=== PATIENT | male | born 1980 | race Caucasian/White ===

== ENCOUNTER 2021-09-01 23:56 | Emergency (ER) | payer MEDICAID ==
[~2021-09-01] VITALS: Ht 182.9 cm; Wt 79.4 kg
[2021-09-02] MEDS ORDERED: TETANUS-DIPTH-ACEL PERTUSSIS 0.5ML SYR Tdap IM ONE (10:30)
[2021-09-02] MEDS ORDERED: cefTRIAXone SOD 1,000 MG VL IM ONE (10:30)
[2021-09-02 10:44] VITALS: BP 125/82
[2021-09-02] MEDS ORDERED: AMOX-277 PO (11:02)
== END 2021-09-02 11:12 | disposition home or self-care (01) ==
LOC: ER 23:56
DX: S61.212A Laceration without foreign body of right middle finger without damage to nail, initial encounter (principal); W50.3XXA Accidental bite by another person, initial encounter; Y93.89 Activity, other specified; Y92.89 Other specified places as the place of occurrence of the external cause; Y99.8 Other external cause status
CPT/HCPCS: 29130; 73130; 90471; 90715; 96372; 99284; J0696

== ENCOUNTER 2022-12-22 13:00 | Emergency (ER) | payer MEDICAID ==
[~2022-12-22] VITALS: Ht 170.2 cm; Wt 77.0 kg
[~2022-12-22 13:00] MED LIST: AMOX875T4 PO
[2022-12-22] MEDS ORDERED: diphenhdrAMINE HCL 25 MG CAP PO ONE (13:45)
[2022-12-22] MEDS ORDERED: DexAMETHasone SOD PHOS 10MG/1ML VIAL INJ IM ONE (13:45)
[2022-12-22] MEDS ORDERED: CLINDAMYCIN HCL 150 MG CAP PO ONE (13:45)
[2022-12-22 13:48] VITALS: BP 125/74; PULSE 82; RESP 20; TEMP 97.7; O2SAT 95
[2022-12-22] MEDS ORDERED: DIPH25CA66 PO (13:48)
[2022-12-22] MEDS ORDERED: CLIN300C70 PO (13:48)
[2022-12-22] MEDS ORDERED: MUPI2OIN2 EX (13:48)
== END 2022-12-22 13:44 | disposition home or self-care (01) ==
LOC: ER 13:00
DX: S50.362A Insect bite (nonvenomous) of left elbow, initial encounter (principal); L08.9 Local infection of the skin and subcutaneous tissue, unspecified; L03.114 Cellulitis of left upper limb; F17.210 Nicotine dependence, cigarettes, uncomplicated; Z79.2 Long term (current) use of antibiotics; W57.XXXA Bitten or stung by nonvenomous insect and other nonvenomous arthropods, initial encounter; Y93.89 Activity, other specified; Y92.89 Other specified places as the place of occurrence of the external cause; Y99.8 Other external cause status
CPT/HCPCS: 96372; 99283; J1100

== ENCOUNTER 2023-01-17 11:52 | Emergency (ER) | payer MEDICAID ==
[~2023-01-17] VITALS: Ht 182.9 cm; Wt 81.8 kg
[~2023-01-17 11:52] MED LIST changes: +CLIN300C70 PO; +DIPH25CA66 PO; +MUPI2OIN2 EX
[2023-01-17 13:15] VITALS: BP 116/82; PULSE 83; RESP 16; TEMP 99; O2SAT 96
[2023-01-17] MEDS ORDERED: TRIA0.02 TOP (13:44)
[2023-01-17] MEDS ORDERED: CEPH500C PO (13:44)
== END 2023-01-17 13:52 | disposition home or self-care (01) ==
LOC: ER 11:52
DX: T63.481A Toxic effect of venom of other arthropod, accidental (unintentional), initial encounter (principal); F17.210 Nicotine dependence, cigarettes, uncomplicated; F15.90 Other stimulant use, unspecified, uncomplicated; Z79.899 Other long term (current) drug therapy; Y92.89 Other specified places as the place of occurrence of the external cause

== ENCOUNTER 2023-05-27 14:05 | Inpatient (IN) | payer MEDICAID ==
[~2023-05-27] VITALS: Ht 182.9 cm; Wt 70.7 kg
[~2023-05-27 14:05] MED LIST changes: +CEPH500C PO; +TRIA0.02 TOP
[2023-05-27 15:49] LABS: Urine Bacteria NONE SEEN /hpf (None Seen); Urine Blood Negative /uL (Negative); Urine Clarity Clear (Clear); Urine Color Yellow (Yellow); Urine Protein, UAD Negative (Negative); Urine Specific Gravity 1.018 (1.001-1.035); Urine Urobilinogen Normal (Negative); Urine WBC 1 /hpf (0 - 3); Urine pH 5.5 (5.0-8.0)
[2023-05-27 17:22] LABS: Basophils # (auto) 0.1 10 ^3/uL (0-0.2); Basophils % (auto) 0.6 % (0.0-2.0); Eosinophils # (auto) 0.2 10 ^3/uL (0-0.8); Eosinophils % (auto) 1.5 % (0.0-7.0); Hematocrit 43.4 % (41.0-53.0); Hemoglobin 14.8 g/dL (13.5-17.5); Lymphocytes # (auto) 2.8 10 ^3/uL (0.4-5.4); Lymphocytes % (auto) 25.8 % (10.0-50.0); Mean Corpuscular Hemoglobin 35.2 pg (28.0-32.0); Mean Corpuscular Hgb Conc. 34.1 g/dL (32.0-36.0); Mean Corpuscular Volume 103.3 fL (80.0-100.0); Monocytes # (auto) 0.9 10 ^3/uL (0-1.3); Monocytes % (auto) 8.3 % (0.0-12.0); Neutrophils # (auto) 6.9 10 ^3/uL (1.6-8.6); Neutrophils % (auto) 63.8 % (37.0-80.0); Nucleated Red Blood Cells % 0.1 %; Red Blood Cells 4.21 10^6/uL (4.5-5.90); Red Cell Distribution Width 12.8 % (11.8-14.3); White Blood Cell 10.8 10^3/uL (4.4-10.8)
[2023-05-27 17:38] LABS: Alanine Aminotransferase 30 U/L (7-40); Albumin 4.1 g/dL (3.2-4.8); Alkaline Phosphatase 82 U/L (46-116); Anion Gap 5 (5-15); Aspartate Aminotransferase 19 U/L (13-40); BUN/Creatinine Ratio 27.6 (10.0-20.0); Bilirubin, Total 0.7 mg/dL (0.2-1.0); Blood Urea Nitrogen 21 mg/dL (9-23); Calcium 8.8 mg/dL (8.7-10.4); Carbon Dioxide 26 mmol/L (20-30); Chloride 103 mmol/L (98-107); Glucose 99 mg/dL (74-106); Lipase 66 U/L (12-53); Potassium 4.4 mmol/L (3.5-5.1); Sodium 134 mmol/L (136-145); Total Protein 6.6 g/dL (5.7-8.2)
[2023-05-27] MEDS: IOHEXOL 350 MG/ML 100ML IJ ONE (19:46)
[2023-05-27] MEDS ORDERED: MORPHINE SULFATE INJ 2 MG/ml SYRG IV PRN ×2 (22:15)
[2023-05-27] MEDS ORDERED: NITROGLYCERIN 0.4 MG SL TAB SL PRN (22:15)
[2023-05-27] MEDS ORDERED: ONDANSETRON HCL 4 MG/2 ML VIAL IV PRN (22:15)
[2023-05-27] MEDS: IOHEXOL 300 MG/ML 100ML BOTTLE IJ ONE (22:45)
[2023-05-27] MEDS: cefTRIAXone 1GM/50ML D5W 50 ML IV ONE (22:59)
[2023-05-27] MEDS: ONDANSETRON HCL 4 MG/2 ML VIAL IV ONE (22:59)
[2023-05-27] MEDS: PANTOPRAZOLE 40 MG/10 ML VIAL INJ IV ONE (22:59)
[2023-05-27] MEDS: SODIUM CHLORIDE 0.9% 1,000 ML IV SCH (23:00)
[2023-05-28 05:30] VITALS: PULSE 84; RESP 18; O2SAT 94
[2023-05-28 06:42] LABS: Basophils # (auto) 0.1 10 ^3/uL (0-0.2); Basophils % (auto) 0.5 % (0.0-2.0); Eosinophils # (auto) 0.2 10 ^3/uL (0-0.8); Hematocrit 36.8 % (41.0-53.0); Hemoglobin 12.7 g/dL (13.5-17.5); Lymphocytes # (auto) 2.2 10 ^3/uL (0.4-5.4); Lymphocytes % (auto) 23.6 % (10.0-50.0); Mean Corpuscular Hgb Conc. 34.5 g/dL (32.0-36.0); Mean Corpuscular Volume 101.3 fL (80.0-100.0); Monocytes # (auto) 0.9 10 ^3/uL (0-1.3); Neutrophils # (auto) 6.1 10 ^3/uL (1.6-8.6); Neutrophils % (auto) 63.9 % (37.0-80.0); Red Blood Cells 3.63 10^6/uL (4.5-5.90); Red Cell Distribution Width 12.7 % (11.8-14.3); White Blood Cell 9.5 10^3/uL (4.4-10.8)
[2023-05-28 06:55] LABS: Alanine Aminotransferase 22 U/L (7-40); Albumin 3.6 g/dL (3.2-4.8); Alkaline Phosphatase 66 U/L (46-116); Anion Gap 3 (5-15); Aspartate Aminotransferase 20 U/L (13-40); BUN/Creatinine Ratio 20.5 (10.0-20.0); Blood Urea Nitrogen 17 mg/dL (9-23); Calcium 8.2 mg/dL (8.5-10.1); Carbon Dioxide 26 mmol/L (20-30); Chloride 105 mmol/L (98-107); Glucose 99 mg/dL (74-106); Potassium 3.9 mmol/L (3.5-5.1); Sodium 134 mmol/L (136-145)
[2023-05-28 06:56] LABS: Bilirubin, Total 0.6 mg/dL (0.2-1.0); Total Protein 5.8 g/dL (5.7-8.2)
[2023-05-28 07:35] VITALS: PULSE 92; RESP 14; O2SAT 97
[2023-05-28] MEDS: PANTOPRAZOLE 40 MG/10 ML VIAL INJ IV SCH (09:32)
[2023-05-28 10:32] VITALS: BP 103/72; PULSE 83; RESP 20; TEMP 98.2; O2SAT 100
[2023-05-28 15:26] LABS: Basophils # (auto) 0 10 ^3/uL (0-0.2); Basophils % (auto) 0.5 % (0.0-2.0); Eosinophils # (auto) 0.1 10 ^3/uL (0-0.8); Eosinophils % (auto) 1.4 % (0.0-7.0); Hematocrit 33.6 % (41.0-53.0); Hemoglobin 11.7 g/dL (13.5-17.5); Lymphocytes # (auto) 1.8 10 ^3/uL (0.4-5.4); Lymphocytes % (auto) 22.7 % (10.0-50.0); Mean Corpuscular Hemoglobin 35.6 pg (28.0-32.0); Mean Corpuscular Hgb Conc. 34.8 g/dL (32.0-36.0); Mean Corpuscular Volume 102.2 fL (80.0-100.0); Monocytes # (auto) 0.8 10 ^3/uL (0-1.3); Monocytes % (auto) 9.9 % (0.0-12.0); Neutrophils # (auto) 5.1 10 ^3/uL (1.6-8.6); Neutrophils % (auto) 65.5 % (37.0-80.0); Red Blood Cells 3.28 10^6/uL (4.5-5.90); Red Cell Distribution Width 12.8 % (11.8-14.3); White Blood Cell 7.7 10^3/uL (4.4-10.8)
[2023-05-28 17:00] VITALS: BP 98/68; PULSE 91; RESP 18; TEMP 97.7; O2SAT 100
[2023-05-28 20:00] VITALS: BP 149/72; PULSE 73; PULSE 88; RESP 18; RESP 19; TEMP 97.9; O2SAT 100
[2023-05-28 22:00] VITALS: BP 110/67; PULSE 102; RESP 19; TEMP 97.6; O2SAT 100
[2023-05-29 05:00] VITALS: BP 95/63; PULSE 58; RESP 17; TEMP 98; O2SAT 95
[2023-05-29 08:00] VITALS: BP 149/72; PULSE 73; RESP 20; TEMP 97.9; O2SAT 100
[2023-05-29 10:13] VITALS: BP 110/72; PULSE 73; RESP 19; TEMP 98.2; O2SAT 94
[2023-05-29 13:01] VITALS: BP 104/64; PULSE 75; RESP 18; TEMP 97.9; O2SAT 98
[2023-05-29 20:30] VITALS: BP 112/67; PULSE 76; PULSE 77; RESP 18; RESP 19; TEMP 98.1; O2SAT 98
[2023-05-29 22:00] VITALS: BP 112/67; PULSE 77; RESP 19; TEMP 98.1; O2SAT 100
[2023-05-30] VITALS (9 sets, daily range): BP systolic 94–112; BP diastolic 56–73; PULSE 65–119; RESP 17–21; TEMP 97.3–98.2; O2SAT 96–100
[2023-05-30 06:24] LABS: Basophils # (auto) 0 10 ^3/uL (0-0.2); Basophils % (auto) 0.5 % (0.0-2.0); Eosinophils # (auto) 0.3 10 ^3/uL (0-0.8); Eosinophils % (auto) 3.9 % (0.0-7.0); Hematocrit 32.6 % (41.0-53.0); Hemoglobin 11.3 g/dL (13.5-17.5); Lymphocytes # (auto) 2.2 10 ^3/uL (0.4-5.4); Lymphocytes % (auto) 30.5 % (10.0-50.0); Mean Corpuscular Hemoglobin 35.8 pg (28.0-32.0); Mean Corpuscular Hgb Conc. 34.6 g/dL (32.0-36.0); Mean Corpuscular Volume 103.6 fL (80.0-100.0); Monocytes # (auto) 0.6 10 ^3/uL (0-1.3); Neutrophils % (auto) 56.1 % (37.0-80.0); Red Blood Cells 3.15 10^6/uL (4.5-5.90); Red Cell Distribution Width 12.9 % (11.8-14.3); White Blood Cell 7.1 10^3/uL (4.4-10.8)
[2023-05-30 06:35] LABS: INR 1.04 (0.9-1.15); Prothrombin Time 10.9 sec (9.3-11.8)
[2023-05-30 06:41] LABS: Alanine Aminotransferase 19 U/L (7-40); Albumin 3.2 g/dL (3.2-4.8); Alkaline Phosphatase 60 U/L (46-116); Anion Gap 3 (5-15); Aspartate Aminotransferase 18 U/L (13-40); Bilirubin, Total 0.5 mg/dL (0.2-1.0); Carbon Dioxide 26 mmol/L (20-30); Chloride 112 mmol/L (98-107); Glucose 91 mg/dL (74-106); Potassium 3.6 mmol/L (3.5-5.1); Sodium 141 mmol/L (136-145); Total Protein 5.1 g/dL (5.7-8.2)
[2023-05-30 06:43] LABS: BUN/Creatinine Ratio 6.7 (10.0-20.0); Blood Urea Nitrogen < 5 mg/dL (9-23)
[2023-05-30] MEDS ORDERED: LIDOCAINE 2%HCL (LOCAL ANESTH.) INJ 10ml MDV ONE (11:20)
[2023-05-30] MEDS ORDERED: PROPOFOL 10 MG/ML 20 ML IV ONE ×2 (11:21→12:49)
[2023-05-30] MEDS: SUCRALFATE 1 GM/10 ML ORAL SUSP PO SCH (18:34)
[2023-05-31 05:00] VITALS: BP 98/57; PULSE 69; RESP 18; TEMP 97.4; O2SAT 97
[2023-05-31 07:30] VITALS: PULSE 63; RESP 18; O2SAT 97
[2023-05-31 09:00] VITALS: BP 118/78; PULSE 85; RESP 20; TEMP 97.8; O2SAT 98
[2023-05-31 11:11] VITALS: O2SAT 97
[2023-05-31] MEDS ORDERED: SUCR1TAB22 OR (11:15)
[2023-05-31] MEDS ORDERED: PANT40TA2 PO (11:15)
[2023-05-31 12:24] VITALS: TEMP 36.6
[2023-05-31 13:00] VITALS: BP 102/65; PULSE 83; RESP 20; TEMP 97.8; O2SAT 99
== END 2023-05-31 13:30 | disposition home or self-care (01) | DRG 241 ==
LOC: ER 14:05 → TELE-CENTR 22:10 → TELE 22:10 → TELE-CENTR 05-28 11:14
PROVIDERS: ADMIT Internal Medicine; ATTEND Internal Medicine
PROC: 0DB68ZX Excision of Stomach, Via Natural or Artificial Opening Endoscopic, Diagnostic (ICD-10-PCS; 2023-05-30)
PROC: 0DB58ZX Excision of Esophagus, Via Natural or Artificial Opening Endoscopic, Diagnostic (ICD-10-PCS; 2023-05-30)
PROC: 0DB48ZX Excision of Esophagogastric Junction, Via Natural or Artificial Opening Endoscopic, Diagnostic (ICD-10-PCS; 2023-05-30)
PROC: 0DB98ZX Excision of Duodenum, Via Natural or Artificial Opening Endoscopic, Diagnostic (ICD-10-PCS; principal; 2023-05-30 12:42)
DX: K29.91 Gastroduodenitis, unspecified, with bleeding (principal); K22.11 Ulcer of esophagus with bleeding; E87.1 Hypo-osmolality and hyponatremia; F10.10 Alcohol abuse, uncomplicated; F17.210 Nicotine dependence, cigarettes, uncomplicated; K44.9 Diaphragmatic hernia without obstruction or gangrene
CPT/HCPCS: 36415; 71045; 74177; 80053; 81001; 82270; 83690; 85025; 85610; 86850; 86900; 86901; C9113; G0378; J2001; J2405; J2704